=== PATIENT | male | born 1965 | race Two or more races ===

== ENCOUNTER 2024-09-28 13:21 | Inpatient (IN) | payer OTHER, SELFPAY ==
[2024-09-28] VITALS (19 sets, daily range): BP systolic 97–133; BP diastolic 58–84; BMI 23.9; BMI 26.0
--- NOTE | 2024-09-28 06:38 | ED.GENMED ---
History of Present Illness
General
Chief Complaint: Change in Mental Status
Source: patient and ambulance crew
Exam Limitations: clinical condition
Time Seen by Provider: 09/28/24 06:02
Nursing documentation reviewed up to this point in time: agreed with
History of Present Illness
History of Present Illness:
59-year-old male with a reported medical history of diabetes, GERD, delirium, 'encephalopathy,' who is apparently wheelchair-bound at baseline�unclear if he had a history of stroke in the past but clearly has left hemiparesis; he presents from
[facility] via EMS with no paperwork. EMS report was that they were called for 'unresponsive patient.' Per their report on their arrival patient was alert and speaking in a few words. The nurse when the patient arrived apparently was
able to get a hold of Nga at [facility] who reported that she is not sure why the patient has left hemiparesis or if he has a history of stroke. Apparently he was sent after an unresponsive episode while they were putting his pants on this
morning. Apparently there was an issue with the printer at [facility] and so he was sent with no paperwork and we have no other information or records. The patient is able to speak only in 1 or 2 words and is a very poor historian. I tried myself
to call [facility] twice and was not able to get in contact with anyone there. Will continue to reach out for collateral history. Unfortunately patient has never been here before and we do not have any emergency contacts to try and contact family.
6:53 AM: I was able to get into Niurka from [facility] to speak with her directly. She says that the patient has been at [facility] for about a month. His medical history includes a history of malignant brain cancer with cerebral edema; he does
have a history of left lower extremity DVT, hyperlipidemia, anxiety, diabetes. He is usually in a wheelchair but is able to ambulate somewhat at baseline. She says that he does NOT have left arm weakness at baseline. He apparently had a recent
hospice consult but is full code and has not initiated hospice care. She reports that this morning when they went to give him 6 AM meds she found him laying in the bed twitching and unresponsive. After a minute or 2 he was then sluggish and more
responsive but still not at his baseline. She noted that he had significant left arm weakness which is apparently not normal for him and EMS was called to bring him to the hospital.
Review of Systems
Review of Systems
Unable to obtain full review of systems at this time due to: other (Aphasia)
All Other Systems: Not applicable
Phy Exam
Physical Exam
Physical Exam:
General: Awake, alert, only speaks in 1-2 words and sparingly, he does try to follow simple commands
Head: Normocephalic, atraumatic
Eyes: Conjunctiva normal, EOMI, pupils equal round and reactive to light bilaterally
Throat: Airway intact, handling secretions
Neck: Trachea midline, supple without meningismus
Lungs: Clear to auscultation bilaterally, no wheezing, rales, rhonchi
Heart: Tachycardia with regular rhythm, no murmurs, gallops, or rubs
Abd: Soft, non distended, no apparent tenderness, no masses
Neuro: Patient has left hemiparesis, left facial droop, expressive aphasia
Skin: Patient has erythema of the left lower leg and some warmth in this area
Extremities: Patient has erythema and warmth of the left lower leg with asymmetric edema +1 left leg, no edema in the right lower extremity; he does have palpable equal pulses throughout all extremities
Scores
Heart Failure Risk
Heart Failure Risk Score: Not Applicable
Heart Score for Chest Pain Patients
STEMI patient?: Not applicable
Withdrawal Assessment of Alcohol
Withdrawal Assessment Completed?: Not applicable
Sepsis
Sepsis Screening
Sepsis Assessment: Sepsis Ruled Out
Sepsis Screen
Sepsis Screen: Sepsis Ruled Out
Date: 09/28/24
Time: 09:44
Course
Orders/Labs/Results
Orders:
Orders
09/28/24 06:01
EKG [Electrocardiogram (*1)] Urgent
Reason for Study: Fatigue / Weakness
09/28/24 06:02
EKG- Treatment ONCE
09/28/24 06:22
Complete Blood Count/With Diff Urgent
Ferritin Urgent
Comment: ADD ON
Folate Urgent
Comment: ADD ON
Free T4 Urgent
Comment: ADD ON
TSH Reflex To Free T4 Urgent
Vitamin B12 Urgent
Comment: ADD ON
09/28/24 06:36
US Periph Venous LOWER Ext LT Urgent
Comment:
Reason For Exam: lle redness, sweling
09/28/24 06:37
EKG- Treatment ONCE
Rectal Temp- Treatment ONCE
09/28/24 06:54
CT HEAD STROKE ALERT W/o Cont Urgent
Comment:
Reason For Exam: syncope, left arm weakness
CT HEAD/NECK ANG STROKE ALERT Urgent
Comment:
Reason For Exam: syncope, left arm weakness
09/28/24 07:02
Cardiovascular Evaluation Urgent
Comment: ADD ON
Comprehensive Metabolic Panel Urgent
09/28/24 07:35
Levetiracetam Injectable [Keppra] 3,000 mg IV NOW STA
Lorazepam [Ativan] 1 mg IV NOW STA
09/28/24 07:36
NEUROLOGY CONSULT Urgent
Consulting Provider: Beau Cunningahm
Was physician already notified: Yes
09/28/24 07:41
Urinalysis Reflex To Culture Urgent
Date Specimen was Collected: 09/28/24
Time Specimen was Collected: 07:38
Urine Microscopic Reflex Cult Urgent
09/28/24 08:26
EEG Extend Monitor >1hr Routine
Reason for Exam: seizure
MethylPREDNISolone. [Solu-Medrol] 1,000 mg 0.9% Sodium Chloride 250 ml [Nss] 250 ml IV NOW
09/28/24 08:30
Dexamethasone Sod Phosphate [Decadron] 8 mg IV NOW STA
09/28/24 09:46
Case Management Consult ONCE
Case Management Consult: Hospice
Hospice: Evaluation and treat
09/28/24 09:50
Add On- LAB Routine
Tests Added?: folate, ferritin, TSH, free t4, B12, lipid panel
09/28/24 11:06
HEMATOLOGY CONSULT Routine
Consulting Provider: Nila Diane
Was physician already notified: Yes
Reason for consult: Brain mass, PE on Eliquis . TY
09/28/24 11:22
Old Records Request [Obtain Records] As Directed
Dates of Information to be Released: last
Type of Information Requested: Last Office Visit H&P
Comment: Dr.Gupta Gonzalez [facility]
Old Records Request [Obtain Records] As Directed
Dates of Information to be Released: august 2024
Type of Information Requested: Consults
Discharge Summary
H&P
Radiology Results
Comment: [facility]
09/28/24 11:50
Admit/Transfer Patient As Directed
Co-Sign Provider:
Level of Care: Inpatient admission
Assign to:: IMU- Intermediate Care
Physician / Group: Hospitalist
Diagnosis: Seizures, Brain mass
Reason for Hospitalization: Seizures, Brain mass
Expected length of stay greater than two midnights?: Yes
ELOS- Estimated Length of Stay in days: 2
I certify the patient meets the requirements for IP care: Yes
09/28/24 11:51
PRN Pain Medication Management As Directed
May give lesser potent ordered pain med per pt: Yes
preference::
Protocol:: Medication orders for pain may be administered in a
manner that supports deferring to patient preference
when the pt is:
- Requesting an ordered lesser potent pain medication.
Least to most potent pain medications are defined
as: acetaminophen < NSAID < tramadol < opioids
(morphine, oxycodone, hydromorphone).
- Requesting a lesser dose of the same medication IF
ORDERED.
- Requesting a less intrusive route of administration
if both routes are prescribed by the provider (PO <
IV).
09/28/24 11:53
Code Status As Directed
Resuscitation Status: Full Code
Abnormal Lab Results
09/28/24 09/28/24 09/28/24
06:22 07:02 07:23
WBC 12.6 H 10^3/uL
(4.8-10.8)
RBC 4.11 L 10^6/uL
(4.70-6.10)
MCV 95.6 H fL
(80.0-94.0)
MCH 32.4 H pg
(27.0-31.0)
Abs Immat Gran (auto) 0.5 H 10^3/uL
(0-0.05)
Absolute Neuts (auto) 10.5 H 10^3/uL
(1.4-6.5)
Absolute Lymphs (auto) 0.7 L 10^3/uL
(1.2-3.4)
Absolute Monos (auto) 0.8 H 10^3/uL
(0.1-0.6)
Immature Gran % 4.0 H %
(0-0.5)
Neutrophils % 83.6 H %
(42.2-75.2)
Lymphocytes % 5.2 L %
(20.5-51.1)
Carbon Dioxide 35 H mmol/L
(22-30)
BUN 21 H mg/dl
(9-20)
Glucose 170 H mg/dl
(70-99)
Total Protein 5.8 L g/dl
(6.3-8.2)
Albumin 3.3 L g/dl
(3.5-5.0)
Urine Ketones
Urine Bacteria (Reflex)
Urine Albumin (Reflex)
POC Glucose 166 H mg/dl
(70-99)
09/28/24
07:41
WBC
RBC
MCV
MCH
Abs Immat Gran (auto)
Absolute Neuts (auto)
Absolute Lymphs (auto)
Absolute Monos (auto)
Immature Gran %
Neutrophils %
Lymphocytes %
Carbon Dioxide
BUN
Glucose
Total Protein
Albumin
Urine Ketones 1+ A
(Negative)
Urine Bacteria (Reflex) Few A
(Negative)
Urine Albumin (Reflex) 2+ A
(Neg - Trace)
POC Glucose
09/28/24 06:22
09/28/24 07:02
Vital Signs
Initial and Last Documented VS:
Initial Vital Signs
BP
133/82
09/28/24 05:54
Last Documented Vital Signs
Temp Pulse Resp BP Pulse Ox
36.9 C 73 14 107/67 100
09/28/24 07:53 09/28/24 08:00 09/28/24 08:00 09/28/24 08:00 09/28/24 08:00
MDM/Problems Addressed
Differential Diagnosis Includes:
Unresponsive episode: Syncope versus seizure�vasovagal, dysrhythmia, anemia, electrolyte derangement, seizure, stroke, etc
MDM/Problems Addressed:
59-year-old male presents with limited history/clinical context unfortunately�apparently he was sent for an unresponsive episode at the assisted this morning. He apparently has a history of left hemiparesis presumably from stroke although again
background information is very limited on initial assessment. His vital signs here were significant for mild tachycardia. Physical exam as above. Will need to continue to seek out collateral history on this patient. In the meantime we will start
workup to include CT head, EKG, labs including a CBC and CMP, thyroid studies and urinalysis. His Accu-Chek was normal. Will check left lower extremity ultrasound given erythema and asymmetric edema although this could be chronic in the setting of
hemiparesis. Monitor very closely reassess after the above.
After obtaining further history from [facility] stroke alert was immediately activated at 6:53 AM. He would not be a tenecteplase candidate given his apparent history of malignant brain tumor with cerebral edema; regardless would likely be outside
window with last normal last night. Suspect more likely that this is a seizure with Alexx's paralysis or worsening cerebral edema secondary brain mass.
I was able to get [facility] to send the records via email. Physician at [facility] also available and reports that he does have history of cerebral edema and is on dexamethasone and Keppra. He also has known history of DVT/PE and is on Eliquis.
CT head shows no hemorrhage but severe cerebral edema likely secondary to mass. No prior CT available for comparison. Initial care was apparently through [facility] according to staff at [facility]. He was incidentally noted to have PE on CTA head
and neck and DVT study of left lower extremity was positive�again this is a known diagnosis and patient is on Eliquis. I did discuss the case with neurology at length with concern that patient could have subclinical seizures causing his worsening
left arm weakness versus worsening cerebral edema. EEG ordered. Treat with Ativan and Keppra. I think he will require admission�I did reach out to both of patient's emergency contacts to update but no answer on multiple calls. Will reach out to
team at [facility] to discuss.
I spoke with Dr. Arredondo the patient's medical oncologist through [facility]. Apparently he was seen by neurosurgery through [facility] during an admission in August. Neurosurgery had signed off on the case with no plans for neurosurgical intervention.
His medications were being managed by medical oncology including prescription for Keppra and dexamethasone. He has been having intermittent aggressive behaviors. Per his oncologist he missed his most recent appointment which was last week. He is
primary cared for by his brother ([phone]). It sounds like Dr. Arredondo had recommended hospice care to the patient's brother. I called the patient's brother to discuss the case�he says that he is not yet ready to pursue hospice care but is
willing to discuss it�he will come to hospital. At this point we will admit to the hospitalist service with neurology consultation and further discussions regarding ultimate plan and possible hospice.
Chronic conditions affecting care:
Brain mass
*Radiology
Radiology exam reviewed: radiology read reviewed
*Pulse Oximetry
SaO2: 98
Oxygen Mode of Delivery: Room air
Patient hypoxic: no (98%)
*EKG
Interpreted by ED Provider?: Yes
Heart Rate: 94
Rate: normal
Rhythm: sinus (Baseline tremor)
Meridian: normal axis
Interval: normal interval
QRS Pattern: normal QRS
Ischemia: other (Possible inferior infarct age undetermined)
*Critical Care Note
Total Time (30-74mins, 75-104mins- exclusive of procedures): 39
comment:
Critical care statement: A total of 39 minutes of critical care time was provided for this patient. This includes management of unstable vital signs, evaluation of the patient at bedside, frequent reassessment, discussion with
consultants/hospitalist, and review of pertinent medical records. This time was separate from time utilized to perform any aforementioned documented procedures
Data Reviewed
Source: patient and ambulance crew
Patient Management
Discussion with other providers: Hospitalist (Discussed with hospitalist), First Assistant (Discussed with neurology) and group home staff (Discussed directly with assisted staff)
Escalation/DeEscalation of care consider admission/obs:
Admission indicated
ED Attending Note
-
Portions of this chart may have been created with voice recognition software.� Occasional wrong word or��sound alike� substitutions may have occurred due to the inherent limitations of voice recognition software.
Discharge Plan
Departure
Patient Disposition: Admit
Date of Disposition: 09/28/24
Time of Disposition: 09:44
Admit to doctor: Eh
Presentation/result/management discussed w/ accepting MD/DO: Hospitalist
Patient with high blood pressure during this ER visit?: No
Discharge Problem:
Left arm weakness, Seizure, Cerebral edema, DVT (deep venous thrombosis), Pulmonary embolism
Interventions
Interventions:
*Risk Screen - Suicide Last Done: 09/28/24 05:58
*General Assessment Last Done: 09/28/24 05:58
*Neglect/Abuse Screening Last Done: 09/28/24 05:58
*ED- Fall Risk Assessment Last Done: 09/28/24 05:58
*ED COVID-19 Vaccine History Last Done: 09/28/24 05:58
ED- Neurological Assessment Last Done: 09/28/24 08:15
ED- Cardiac Assessment Last Done: 09/28/24 08:15
ED Swallowing Screen Last Done: 09/28/24 08:15
[2024-09-28 06:45] LABS: % Basophils 0.4 % (0-2); % Eosinophils 0.1 % (0-6); % Lymphocytes 5.2 % (20.5-51.1); % Monocytes 6.7 % (1.7-9.3); % Neutrophils 83.6 % (42.2-75.2); Absolute Basophils 0.1 10^3/uL (0-0.2); Absolute Immature Granulocytes 0.5 10^3/uL (0-0.05); Absolute Lymphocytes 0.7 10^3/uL (1.2-3.4); Absolute Monocytes 0.8 10^3/uL (0.1-0.6); Absolute Neutrophils 10.5 10^3/uL (1.4-6.5); Hematocrit 39.3 % (39.0-52.0); Hemoglobin 13.3 g/dL (13.0-18.0); Mean Corp Hgb Conc. 33.8 g/dL (33.0-37.0); Mean Corpuscular Hgb 32.4 pg (27.0-31.0); Mean Corpuscular Volume 95.6 fL (80.0-94.0); Mean Platelet Volume 9.4 fL (7.4-10.4); Nucleated Red Blood Cells % 0 % (-); Platelet Count 190 10^3/uL (130-400); Red Blood Cell Count 4.11 10^6/uL (4.70-6.10); White Blood Cell Count 12.6 10^3/uL (4.8-10.8)
[2024-09-28 07:25] LABS: Glucose - Point of Care 166 mg/dl (70-99)
[2024-09-28 07:37] LABS: ALT (SGPT) 33 U/L (0-50); AST (SGOT) 17 U/L (17-59); Albumin 3.3 g/dl (3.5-5.0); Alkaline Phosphatase 80 U/L (38-126); Blood Urea Nitrogen 21 mg/dl (9-20); Calcium 9.1 mg/dl (8.4-10.2); Carbon Dioxide 35 mmol/L (22-30); Chloride 104 mmol/L (98-107); Estimated Creatinine Clearance 95 ml/min; Glucose 170 mg/dl (70-99); Potassium 3.7 mmol/L (3.5-5.1); Sodium 141 mmol/L (135-145); Total Bilirubin 0.5 mg/dl (0.2-1.3); Total Protein 5.8 g/dl (6.3-8.2); eGFR > 60.00
[2024-09-28] MEDS: KEPPRA 3000 MG IV (07:51)
[2024-09-28] MEDS: ATIVAN 1 MG IV (07:52)
[2024-09-28 08:12] LABS: Urine Albumin 2+ (Neg - Trace); Urine Bilirubin Negative (Negative); Urine Character Slightly Cloudy (Clear); Urine Color Yellow; Urine Glucose Negative (Negative); Urine Ketone 1+ (Negative); Urine Leukocyte Negative (Negative); Urine Nitrite Negative (Negative); Urine Occult Blood Negative (Negative); Urine Specific Gravity 1.025 (<1.030); Urine Urobilinogen Negative (Neg - 1+)
--- NOTE | 2024-09-28 08:15 | CON.NEURO ---
Addendum entered and electronically signed by Beau Cunningham MD 09/28/24 17:48:
Studies reviewed.
I have personally examined the patient. I reviewed and agree with the CHILDREN'S CHOIR DIRECTOR's Note.
My addenda:
Awake, alert, bradyphrenic. No acute distress.
Speech very hoarse, minimal output.
Unable to follow 2-step requests, mild to moderate difficulty with single step requests. No tremor.
Extra-ocular movements grossly intact.
Facial movements reduced on the right mildly, otherwise intact. Hearing intact to normal conversational volume.
Neck: full ROM.
Chest: no dyspnea
Heart: no JVD
Ext: (-) Clubbing, erythema in the left lower extremity distally
IMPRESSIONS/RECOMMENDATIONS:
Abrupt onset of change in mental status. Most likely secondary to combination of generalized vasogenic edema which is most likely secondary to the patient's known history of brain malignancy as well as toxic metabolic factors including discovery of
pulmonary emboli and ongoing left DVT
Patient provided with loading dose of levetiracetam and increase in routine dosing from 500 mg twice a day to dosing of 1000 mg twice a day
Check EEG, completed
Increase routine dexamethasone from 2 mg to dosing of 4 mg 4 times a day as well as loading dose of 10 mg
Continue use of apixaban
Rehabilitation evaluations and treatment
Consideration for hospice seems reasonable
Will continue to follow patient.
Original Note:
Documented by User: Teresa Bauman NP 09/28/24 10:27
Neuro Assessment/Plan
Assessment
59-year-old male presents from [facility] via EMS with limited history/clinical context unfortunately�apparently he was sent for an unresponsive episode at the shelter this morning.
Peripheral Vascular Ultrasound:Nonocclusive thrombus involving the left popliteal and posterior tibial veins.
Head CT:
1. SEVERE VASOGENIC EDEMA throughout the RIGHT PARIETAL LOBE, RIGHT OCCIPITAL LOBE, and POSTERIOR RIGHT FRONTAL LOBE with associated sulcal effacement and effacement of the body and occipital horn of the right lateral ventricle. Considering that
this is located deep to the site of a right parietal craniotomy, this may be secondary to a RECURRENT INTRAPARENCHYMAL BRAIN TUMOR (either metastatic disease or primary brain malignancy). Other causes of severe vasogenic edema are also possible.
2. Severe white matter disease in the left parietal and occipital lobes with mild mass effect which is much less pronounced than on the right.
3. 5.6 mm right to left midline shift.
4. No CT evidence for acute intracranial hemorrhage or transcortical ischemic infarct.
CTA head and neck:
NECK CTA:
1. ACUTE PULMONARY ARTERIAL EMBOLI in the RIGHT LUNG.
2. Mild atherosclerotic plaque in both carotid bifurcations.
3. Mild hypoplasia of the left vertebral artery.
4. Moderate discogenic degenerative disease at C4/C5, C5/C6, and C6/C7 with disc-osteophyte complexes causing mild spinal cord compression and central canal stenosis.
HEAD CTA:
1. 50-70% diameter stenosis in the terminal communicating segment of the right ICA.
2. 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
3. SEVERE VASOGENIC EDEMA throughout the RIGHT PARIETAL, POSTERIOR FRONTAL, and OCCIPITAL LOBES located deep to a right parietal craniotomy. Severe mass effect with sulcal effacement and effacement of the body of the right lateral ventricle
suggesting an INTRAPARENCHYMAL BRAIN TUMOR (or radiation necrosis).
4. Severe white matter disease throughout the left parietal, occipital, and posterior frontal lobes.
5. 5 mm [id number] midline shift.
Labs: Cholesterol 174, LDL 100
Plan
Impressions:
I. abrupt onset of left sided weakness and change in mental status from breakthrough seizure with Alexx's paralysis in the setting of severe cerebral edema secondary to metastatic disease
II. cannot rule out CVA in the setting of hypercoagulable state secondary to metastatic disease process
Plan:
-obtain EEG to monitor seizure activity
-seizure precautions
-load with 3g Levetiracetam and increase from 500 mg BID to 1000 mg BID
-give 8 mg dexamethasone IV now, continue 2 mg daily
-DVT prophylaxis
-neurochecks and NIHSS per unit guidelines
-if no improvement in mental status and exam by tomorrow, may consider brain MRI
-PT/OT/ST evaluations
-resume anticoagulation when able to take po
-increase statin therapy when able to take po
-may consider hospice care
Consultation
Order
Date of Consultation: 09/28/24
Requesting Provider: hospitalist
Reason for Consult: cerebral edema, seizure like activity
Subjective/Objective
Subjective Data
Date of Service: September 28, 2024
Limited history given patient with severe expressive aphasia and arrived to ED with no paperwork or family. Note taken from ED documentation by Dr. Haque:
'59-year-old male with a reported medical history of diabetes, GERD, delirium, 'encephalopathy,' who is apparently wheelchair-bound at baseline�unclear if he had a history of stroke in the past but clearly has left hemiparesis; he presents from
[facility] via EMS with no paperwork. EMS report was that they were called for 'unresponsive patient.' Per their report on their arrival patient was alert and speaking in a few words. The nurse when the patient arrived apparently was
able to get a hold of Nga at [facility] who reported that she is not sure why the patient has left hemiparesis or if he has a history of stroke. Apparently he was sent after an unresponsive episode while they were putting his pants on this
morning. Apparently there was an issue with the printer at [facility] and so he was sent with no paperwork and we have no other information or records. The patient is able to speak only in 1 or 2 words and is a very poor historian. I tried myself
to call [facility] twice and was not able to get in contact with anyone there. Will continue to reach out for collateral history. Unfortunately patient has never been here before and we do not have any emergency contacts to try and contact family.
6:53 AM: I was able to get into Niurka from [facility] to speak with her directly. She says that the patient has been at [facility] for about a month. His medical history includes a history of malignant brain cancer with cerebral edema; he does
have a history of left lower extremity DVT, hyperlipidemia, anxiety, diabetes. He is usually in a wheelchair but is able to ambulate somewhat at baseline. She says that he does NOT have left arm weakness at baseline. He apparently had a recent
hospice consult but is full code and has not initiated hospice care. She reports that this morning when they went to give him 6 AM meds she found him laying in the bed twitching and unresponsive. After a minute or 2 he was then sluggish and more
responsive but still not at his baseline. She noted that he had significant left arm weakness which is apparently not normal for him and EMS was called to bring him to the hospital.
After obtaining further history from [facility] stroke alert was immediately activated at 6:53 AM. He would not be a tenecteplase candidate given his apparent history of malignant brain tumor with cerebral edema; regardless would likely be outside
window with last normal last night. Suspect more likely that this is a seizure with Alexx's paralysis or worsening cerebral edema secondary brain mass. CT head shows no hemorrhage or transcortical ischemic infarct but severe cerebral edema likely
secondary to mass. No prior CT available for comparison. His head and neck CTA neck showed acute pulmonary arterial emboli in the right lung, mild atherosclerotic plaque in both carotid bifurcations, mild hypoplasia of the left vertebral artery, and
moderate discogenic degenerative disease at C4/C5, C5/C6, and C6/C7 with disc-osteophyte complexes causing mild spinal cord compression and central canal stenosis. His CTA head showed 50-70% diameter stenosis in the terminal communicating segment of
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 His left lower extremity with erythema and asymmetrical edema. Ultrasound showed nonocclusive thrombus involving the left popliteal and posterior tibial
veins. Vital signs stable. Neurologic examination with left hemiparesis and expressive aphasia, able to follow simple commands. Intermittent RUE twitching noted. According to [facility] records, he does have history of cerebral edema and is on
dexamethasone and Keppra. He also has known history of DVT/PE and is on Eliquis.
Apparently he was seen by neurosurgery through [facility] during an admission in August. Neurosurgery had signed off on the case with no plans for neurosurgical intervention. His medications were being managed by medical oncology including
prescription for Keppra and dexamethasone. He has been having intermittent aggressive behaviors. Per his oncologist he missed his most recent appointment which was last week. He is primary cared for by his brother ([phone]). It sounds like
Dr. Arredondo had recommended hospice care to the patient's brother. I called the patient's brother to discuss the case�he says that he is not yet ready to pursue hospice care but is willing to discuss it�he will come to hospital. At this point we
will admit to the hospitalist service with neurology consultation and further discussions regarding ultimate plan and possible hospice.'
Objective Data
Vital Signs
Temp Pulse Resp BP Pulse Ox
98.4 F 83 14 107/67 98
09/28/24 07:37 09/28/24 08:00 09/28/24 08:00 09/28/24 08:00 09/28/24 07:04
Lab Results
09/28/24 06:22
09/28/24 07:02
Sodium 141 mmol/L (135-145) 09/28/24 07:02
Potassium 3.7 mmol/L (3.5-5.1) 09/28/24 07:02
BUN 21 mg/dl (9-20) H 09/28/24 07:02
Glucose 170 mg/dl (70-99) H 09/28/24 07:02
Calcium 9.1 mg/dl (8.4-10.2) 09/28/24 07:02
Patient Allergies
No Known Allergies Allergy (Unverified 09/28/24 07:07)
CVA Assessment
Onset of Stroke Symptoms
Onset of symptoms known: No
Time pt last seen normal is known: No
NIH Stroke Score
Level of Consciousness: 1 - Arousable
LOC Questions: 0-Answers both correctly
LOC Commands: 0-Performs both correctly
Best Horizontal Gaze: 0-Normal
Visual Jaquez: 0=Normal, no visual loss
Facial Palsy: 1=Minor paralysis
Motor - Right Arm: 0=No drift 10 seconds
Motor - Left Arm: 4=No movement
Motor - Right Le-No drift 5 seconds
Motor - Left Le-No movement
Limb Ataxia: 2-Present in two limbs
Sensation: 2-Severe loss
Best Language: 2-Severe aphasia
Dysarthria: 0-Normal
Extinction and Inattention: 2-Total jeremy inattention
NIH Total Score:: 18
Tenecteplase Contraindications
Inclusion and Exclusion criteria reviewed: Yes
Reasons for NON-Tx with Thrombolytics ABSOLUTE Exclusions: Patient taking oral anticoagulant and last dose within 48 hours
IAT Contraindications: >6 hrs from onset/last seen normal
Modified Pepperell Score (MRS)
-
Modified Pepperell Scale (mRS): Severe disability. Requires constant nursing care.
Score: 5
Review of Systems
-
Unable to obtain full review of systems at this time due to: Acuity and Patient Non-verbal
Physical Exam
-
General: Older than Stated Age
HEENT: Normocephalic and Atraumatic
Neck: Full Range of Motion
Respiratory: No Dyspnea
Cardiac: No JVD
GI: Non-distended
Extremities: Edema +3 (left pretibial edema due to DVT)
Psych: Unable to Assess
Extended Neurological Exam
Mood & Affect: Unable to Assess
Attention Span & Concentration: Lethargic and Moderate Difficulty with 2 Step Request
Memory: Unable to Recall
Tremor: Frequent (RUE tremor)
Speech: Severely Reduced Output and Dysarthric
Cranial Nerve VII: Facial Symmetry: Reduced (left sided weakness)
Muscle Strength, Overall: Reduced on Left (left sided hemiparesis)
Past History
Past History
ED Past Medical History: Cancer, HTN, Hypercholesterolemia, NIDDM and Other (DVT)

Documented by User: Beau Cunningham MD 09/28/24 17:35
CVA Assessment
NIH Stroke Score
NIH Total Score:: 18
Modified Diana Score (MRS)
-
Score: 5
[2024-09-28 08:39] LABS: Urine Mucus Few; Urine Urothelial Cell 0-2 /LPF (FEW)
[2024-09-28 08:40] LABS: Urine Red Blood Cell 0-2 /HPF (0-2)
[2024-09-28 08:41] LABS: Urine Bacteria Few (Negative); Urine White Cell 0-2 /HPF (0-5)
[2024-09-28] MEDS: DECADRON 8 MG IV (09:00)
[2024-09-28 10:07] LABS: HDL Cholesterol 57 mg/dl; LDL Cholesterol, Calculated 100 mg/dl; Total Cholesterol 174 mg/dl (50-199); Triglyceride 89 mg/dl (10-149); Very Low Density Lipoprotein 17 mg/dl (0-30)
--- NOTE | 2024-09-28 10:50 | HPS.HSE ---
Family Physician
-
Family Physician: Bam Tafoya, DO
Chief Complaint
-
Unresponsive episode, twitching
History of Present Illness
59-year-old male with history of glioblastoma gets care at [facility]. He was admitted there in August and was discharged to [facility]. He has been there for a month. Patient has been seen by his oncologist Dr. Arredondo and is on Keppra and steroids
now. He is also on Eliquis for DVT/PE. He had a seizure today and also left-sided weakness. Patient has baseline weakness on the left side and left facial droop along with expressive aphasia. ER spoke to [facility] and they recommended hospice
care. Patient's family does not want hospice care. At baseline patient is able to be a few words. Brother states that he visits him every other day and brings dinner. States his brother eats dinner with him and able to communicate. For the past
2 days he was not himself.
Medical History
Past Medical History
Past Medical History: Reports Other
Additional Past Medical History:
Glioblastoma, seizures, hyperlipidemia, left lower extremity DVT, anxiety, diabetes. Wheelchair-bound, anxiety
Past Surgical History: Reports Other (unknown)
Additional Past Surgical History:
Brain surgery ( Details unclear)
Social History
Unable to obtain full social history at this time due to: Other
Tobacco: Former Smoker
Alcohol: None
Drug: None
Personal: Single
Employment: Disabled
Family History
Family History: Other (Brother says nothing.)
Allergies / Home Medications
Allergies reflects when Allergies were last updated in [facility].
Home Medications with original date entered in [facility]
Allergy/Medication List:
Allergies
Allergy/AdvReac Type Severity Reaction Status Date / Time
No Known Allergies Allergy Unverified 09/28/24 07:07
Home Medications
acetaminophen 325 mg tablet (Tylenol) 650 mg PO Q6HPRN PRN mild pain 09/28/24
alprazolam 0.5 mg tablet (Xanax) 0.5 mg PO BIDPRN PRN anxiety 09/28/24
apixaban 5 mg tablet (Eliquis) 5 mg PO BID Blood Clot Prevention/Tx 09/28/24
bisacodyl 10 mg rectal suppository (Dulcolax (bisacodyl)) 10 mg NH DAILYPRN PRN if no bm aftr mom 09/28/24
bisacodyl 5 mg tablet,delayed release (Dulcolax (bisacodyl)) 10 mg PO HS Constipation 09/28/24
calcium carbonate (Tums) 300 mg PO BID Gastrointestinal Issue 09/28/24
dexamethasone 2 mg tablet 2 mg PO DAILY 09/28/24
docusate sodium 50 mg capsule 50 mg PO HS Constipation 09/28/24
ergocalciferol (vitamin D2) 1,250 mcg (50,000 unit) capsule 1,250 mcg PO Q7D Supplement 09/28/24
furosemide 40 mg tablet (Lasix) 40 mg PO DAILY Blood Pressure 09/28/24
levetiracetam 500 mg tablet (Keppra) 500 mg PO BID Neurological Condition 09/28/24
magnesium hydroxide 400 mg/5 mL oral suspension (Milk of Magnesia) 2,400 mg PO [id number] PRN constipation 09/28/24
melatonin 3 mg tablet 3 mg PO HS Sleep 09/28/24
metformin 500 mg tablet 500 mg PO BID Diabetes 09/28/24
nicotine 21 mg/24 hr daily transdermal patch 1 patch transdermal DAILY NICOTINE REPLACEMENT 09/28/24
olanzapine 2.5 mg tablet 2.5 mg PO DAILY Mental Health/Anxiety 09/28/24
olanzapine 5 mg disintegrating tablet 5 mg PO DAILY@1300 Mental Health/Anxiety 09/28/24
omeprazole 20 mg tablet,delayed release 20 mg PO DAILY Gastrointestinal Issue 09/28/24
rosuvastatin 10 mg tablet (Crestor) 10 mg PO DAILY High Cholesterol 09/28/24
sodium phosphates 19 gram-7 gram/118 mL enema (Fleet Enema) 118 ml NH DAILYPRN PRN if no bm aftr dulcolax 09/28/24
trazodone 50 mg tablet 50 mg PO HS Sleep 09/28/24
Review of Systems
-
Unable to obtain full review of systems at this time due to: Patient Non-verbal
A 12 point ROS was completed and negative except as noted: No
Physical Exam
Vital Signs
Vital Signs
Temp Pulse Resp BP Pulse Ox
98.4 F 73 14 107/67 100
09/28/24 07:53 09/28/24 08:00 09/28/24 08:00 09/28/24 08:00 09/28/24 08:00
Physical Exam
General: Other (says a few words)
Respiratory: Clear
Cardiac: S1/S2 and Regular Rhythm
GI: Soft, Non Tender and Normal Bowel Sounds
Skin: Warm
Neuro: Other (having intermittent Seizures on the left side, says name then goes to sleep. Left hemiplegia)
Laboratory Results
-
09/28/24 06:22
09/28/24 07:02
Laboratory Results
Total Bilirubin 0.5 mg/dl (0.2-1.3) 09/28/24 07:02
AST 17 U/L (17-59) 09/28/24 07:02
ALT 33 U/L (0-50) 09/28/24 07:02
Alkaline Phosphatase 80 U/L (38-126) 09/28/24 07:02
Data Reviewed
-
CT Scan: Report Reviewed by me
Impression/Plan
-
IMPRESSION/PLAN:
CTA head and neck-acute pulmonary artery embolism in the right lung. Mild atherosclerotic plaque in both carotid bifurcations. Mild hypoplasia of the left vertebral artery. 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
complexes causing mild spinal cord compression and central canal stenosis.
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 Severe vasogenic edema throughout the right parietal, posterior frontal, occipital lobes
located deep into the right parietal craniotomy. Severe mass effect with sulci effacement and effacement of the body of the right lateral ventricle suggesting intraparenchymal brain tumor or radiation necrosis. Severe white matter disease
throughout left parietal, occipital, posterior frontal lobes. 5 mm right to left midline shift.
Head CT-severe vasogenic edema throughout the right parietal lobe, right occipital lobe and posterior right frontal lobe with associated sulcal effacement and effacement of the body and occipital horn of the right lateral ventricle. Considering that
this is located deep to the site of a right parietal craniotomy, this may be secondary to a recurrent intraparenchymal brain tumor (either metastatic disease or primary brain malignancy). Other causes of severe vasogenic edema are also possible.
Severe white matter disease in the left parietal and occipital lobes with mild mass effect which is much less pronounced than on the right.5.6 mm right to left midline shift.No CT evidence for acute intracranial hemorrhage or transcortical ischemic
infarct.
Ultrasound-nonocclusive thrombus involving left popliteal and posterior tibial veins
EKG-normal sinus rhythm
Spoke to brother . Diagnosed a year ago. He got Surgery [facility] followed by chemo and Radiation. His insurance changed and then he had to shift treatments to [facility]. He does not exactly know when last treatment was ,may be 2 months
ago. He sees him every other day at the assisted. Patient does not ambulate and the last time he ambulated was possibly 2 months ago .
# Seizures
Likely secondary to glioblastoma
Got 3 g of Keppra IV and Ativan in the ER also Decadron
Neurology evaluation
Continue Keppra but increase to 1000 mg BID, adding Vimpat
Increase Decadron to 4 mg IV Q4H per D/[facility] Neuro
# Glioblastoma
Left-sided weakness from above
Patient has been seen by neurosurgery through [facility] system during an admission in August
No neurosurgical intervention planned
Patient has been managed by medical oncology including Keppra and Decadron
Patient has been having some intermittent aggressive behavior
Reportedly patient missed appointment last week.
Medical oncologist Dr. Arredondo has also recommended hospice
# Mental health disorder/behavior management-continue Xanax 0.5 mg p.o. twice daily as needed, olanzapine 2.5 mg daily and 5 mg at 1300, trazodone 50 mg at bedtime
# PE/DVT-on Eliquis-will request hematology oncology opinion given patient was already on this and developed PE. Change to Lovenox
# Hyperlipidemia continue statin when patient can take p.o.
#Diabetes Check hemoglobin A1c
Accu-Cheks and sliding scale coverage
Restart metformin when patient can take p.o.
Watch sugars with increased steroids
# Ex Smoker
# DVT prophylaxis-Switch to Lovenox
# CODE STATUS-Full code for now. Family will get back to me
Spoke to ER attending
Discussed with patient's brother who is his next of kin and also patient's niece who is a premed student. I explained in detail his prognosis is not good. He is not currently on any treatment for glioblastoma and this is progressing. CODE STATUS
addressed they need time to think about it and will get back to me. Complications of brain edema and herniation discussed with family
Also note that hospice was discussed by his previous physician's.
Records requested from [facility] as well as from Dr. Arredondo's office
Time spent over 75 minutes
[2024-09-28 11:33] LABS: TSH Reflex To Free T4 2.45 uIU/ml (0.47-4.68)
[2024-09-28 12:03] LABS: Free T4 1.26 ng/dl (0.78-2.19)
[2024-09-28 12:53] LABS: Folate 14.3 ng/ml (2.76-20); Vitamin B12 242 pg/ml (239-931)
--- NOTE | 2024-09-28 15:02 | CM ---
CM consult, pt's brother Braulio and cousin here to see pt.
I attempted to meet with them to discuss hospice but they wanted to speak to a physician before discussing.
I TT Dr Tran, she spoke with his brother earlier and has left the hospital but will call him. I did speak with them again, his brother is willing to discuss hospice but would like him moved to a facility in [place] so he could be closer to his
sister.
I informed them pt will be going up to room 3354 shortly and CM will follow up tomorrow. Braulio says he will return tomorrow to visit.
--- NOTE | 2024-09-28 15:30 | EDRN ---
Report called to KIRSTEN Medina in IMU. Family at bedside. Case Management notified.
--- NOTE | 2024-09-28 16:25 | CON.ONC ---
Consultation
-
Date Consultation Requested: 09/28/24
Date Consultation Performed: 09/28/24
Requesting Provider: Dr Olson
Performing Provider: Nila Diane MD
Reason for Consultation: GBM
Impression
Impression
GBM, resected in october 2023, then treated with adjuvant RT and chemo
failure to thrive, new left hemiparesis
h/o LLE DVT
Plan
Plan
Patient is not a candidate for any cancer directed therapy
Rec. hospice. Brother's expressed understanding.
Will consult case mgmt/hospice
Steroids/keppra per neurology
Could stop Eliquis if going on hospice
Patient History
History of Present Illness
This is a 59 yo M w/ h/o GBM diagnosed in October 2023, s/p surgery in [place], followed by RT and chemo. His oncologist is Dr. Arredondo in [facility], who recently recommended hospice. Patient has been in rehab at [facility] (more convenient for family who
live in [place]), sent to ER w/ left hemiparesis, and ?seizure activity. CT head showed significant edema, mailgnancy. Patient is unable to give history, two brothers at bedside. He also has a h/o LLE DVT, on Eliquis for the past ~3 months.
Past-Medical/Surgical History
as per the HPI
Patient Medication
�Medication �Instructions �Recorded �Confirmed �Last Taken �Type
acetaminophen 325 mg tablet 650 mg PO Q6HPRN PRN mild pain 09/28/24 09/28/24 Unknown History
(Tylenol)
alprazolam 0.5 mg tablet (Xanax) 0.5 mg PO BIDPRN PRN anxiety 09/28/24 09/28/24 Unknown History
apixaban 5 mg tablet (Eliquis) 5 mg PO BID Blood Clot 09/28/24 09/28/24 Unknown History
Prevention/Tx
bisacodyl 10 mg rectal suppository 10 mg WI DAILYPRN PRN if no bm 09/28/24 09/28/24 Unknown History
(Dulcolax (bisacodyl)) aftr mom
bisacodyl 5 mg tablet,delayed 10 mg PO HS Constipation 09/28/24 09/28/24 Unknown History
release (Dulcolax (bisacodyl))
calcium carbonate (Tums) 300 mg PO BID Gastrointestinal 09/28/24 09/28/24 Unknown History
Issue
dexamethasone 2 mg tablet 2 mg PO DAILY 09/28/24 09/28/24 Unknown History
docusate sodium 50 mg capsule 50 mg PO HS Constipation 09/28/24 09/28/24 Unknown History
ergocalciferol (vitamin D2) 1,250 1,250 mcg PO Q7D Supplement 09/28/24 09/28/24 Unknown History
mcg (50,000 unit) capsule
furosemide 40 mg tablet (Lasix) 40 mg PO DAILY Blood Pressure 09/28/24 09/28/24 Unknown History
levetiracetam 500 mg tablet 500 mg PO BID Neurological 09/28/24 09/28/24 Unknown History
(Keppra) Condition
magnesium hydroxide 400 mg/5 mL 2,400 mg PO [id number] PRN 09/28/24 09/28/24 Unknown History
oral suspension (Milk of Magnesia) constipation
melatonin 3 mg tablet 3 mg PO HS Sleep 09/28/24 09/28/24 Unknown History
metformin 500 mg tablet 500 mg PO BID Diabetes 09/28/24 09/28/24 Unknown History
nicotine 21 mg/24 hr daily 1 patch transdermal DAILY NICOTINE 09/28/24 09/28/24 Unknown History
transdermal patch REPLACEMENT
olanzapine 2.5 mg tablet 2.5 mg PO DAILY Mental 09/28/24 09/28/24 Unknown History
Health/Anxiety
olanzapine 5 mg disintegrating 5 mg PO DAILY@1300 Mental 09/28/24 09/28/24 Unknown History
tablet Health/Anxiety
omeprazole 20 mg tablet,delayed 20 mg PO DAILY Gastrointestinal 09/28/24 09/28/24 Unknown History
release Issue
rosuvastatin 10 mg tablet (Crestor) 10 mg PO DAILY High Cholesterol 09/28/24 09/28/24 Unknown History
sodium phosphates 19 gram-7 118 ml WI DAILYPRN PRN if no bm 09/28/24 09/28/24 Unknown History
gram/118 mL enema (Fleet Enema) aftr dulcolax
trazodone 50 mg tablet 50 mg PO HS Sleep 09/28/24 09/28/24 Unknown History
Review of Systems
-
Unable to obtain full review of systems at this time due to: Patient Non Verbal
Physical Exam
-
General: No Apparent Distress and Comfortable; Negative Conversant
Neurology: Other (left hemiparesis/neglect)
Skin: Warm and Dry
Psych: Calm
Labs
Lab Results
WBC 12.6 10^3/uL (4.8-10.8) H 09/28/24 06:22
RBC 4.11 10^6/uL (4.70-6.10) L 09/28/24 06:22
Hgb 13.3 g/dL (13.0-18.0) 09/28/24 06:22
Hct 39.3 % (39.0-52.0) 09/28/24 06:22
MCV 95.6 fL (80.0-94.0) H 09/28/24 06:22
MCH 32.4 pg (27.0-31.0) H 09/28/24 06:22
MCHC 33.8 g/dL (33.0-37.0) 09/28/24 06:22
RDW 14.0 % (11.5-14.5) 09/28/24 06:22
Plt Count 190 10^3/uL (130-400) 09/28/24 06:22
MPV 9.4 fL (7.4-10.4) 09/28/24 06:22
Abs Immat Gran (auto) 0.5 10^3/uL (0-0.05) H 09/28/24 06:22
Absolute Neuts (auto) 10.5 10^3/uL (1.4-6.5) H 09/28/24 06:22
Absolute Lymphs (auto) 0.7 10^3/uL (1.2-3.4) L 09/28/24 06:22
Absolute Monos (auto) 0.8 10^3/uL (0.1-0.6) H 09/28/24 06:22
Absolute Eos (auto) 0.0 10^3/uL (0-0.7) 09/28/24 06:22
Absolute Basos (auto) 0.1 10^3/uL (0-0.2) 09/28/24 06:22
Immature Gran % 4.0 % (0-0.5) H 09/28/24 06:22
Neutrophils % 83.6 % (42.2-75.2) H 09/28/24 06:22
Lymphocytes % 5.2 % (20.5-51.1) L 09/28/24 06:22
Monocytes % 6.7 % (1.7-9.3) 09/28/24 06:22
Eosinophils % 0.1 % (0-6) 09/28/24 06:22
Basophils % 0.4 % (0-2) 09/28/24 06:22
Creatinine 0.7 mg/dL (0.7-1.3) 09/28/24 07:02
Vital Signs
Vital Signs
Temp Pulse Resp BP Pulse Ox
98.4 F 70 15 100/58 97
09/28/24 07:53 09/28/24 15:30 09/28/24 14:30 09/28/24 15:00 09/28/24 15:30
--- NOTE | 2024-09-28 16:40 | EDRN ---
Patient taken to room 3354 on monitor on stretcher by ED RNs.
--- NOTE | 2024-09-28 17:19 | EEG.RPT ---
Electroencephalogram Report
Recording
Date of EE09/28/24
Type of EEG: Routine
Length of EEG recordin minutes
Done with Video Recording: Yes
Patient Status: Inpatient
Recording Conditions: Awake and Drowsy
Hyperventilation Performed: No
Photic Stimulation Performed: Yes
Report
GREATER THAN 1 HOUR EEG REPORT
EEG INTERPRETATION:
Moderately to severely abnormal EEG for age in wakefulness and drowsiness due to mild interhemispheric asymmetry and intermittent change in the record involving the right central temporal region suggestive of subclinical seizures of theta frequency.
CLINICAL CORRELATION:
This study was suggestive of right hemispheric onset subclinical seizures which were subtle.
Clinical correlation with neuroimaging is advised.
METHODS:
A 21 channel digitized electroencephalogram (EEG) was performed in the clinical neurophysiology laboratory. The 10/20 international system of electrode placement was used with ECG and lateral/vertical eye movements recorded. Video was recorded.
[employer] quantitative EEG analysis software was utilized.
QUALITY OF STUDY:
Fair�good
ELECTROENCEPHALOGRAPHER IMPRESSION(S):
Background
Unremarkable anterior-posterior voltage gradient bilaterally with greater differentiation of anterior to posterior from the left hemisphere than the right.
Medium amplitude maximal alpha frequency posterior background from the left hemisphere; asymmetric with theta frequency maximal background from the right hemisphere, typically delta
Sleep
Drowsiness present
Photic Stimulation
Failed to activate the record
ECG
Unremarkable
[2024-09-28] MEDS: DECADRON 4 MG IV ×2 (17:38→21:37)
[2024-09-28] MEDS: NSS 1000 IV (17:39)
--- NOTE | 2024-09-28 18:10 | PTCARENOTE ---
Pt received from ED via stretcher. Aox2-3. NIH of 11- see intervention. Pt is a very poor historian and admission questions completed to the best of pt's ability. Assessment as documented. Limb alert bands placed on L arm and Leg. Bed alarm in place
for safety..
[2024-09-28 18:25] LABS: Glucose - Point of Care 140 mg/dl (70-99)
[2024-09-28] MEDS: LOVENOX 60 MG SC (21:36)
[2024-09-28] MEDS: KEPPRA 1000 MG IV (21:36)
[2024-09-29] VITALS (12 sets, daily range): BP systolic 96–134; BP diastolic 61–87
[2024-09-29 00:04] LABS: Glucose - Point of Care 144 mg/dl (70-99)
[2024-09-29] MEDS: DECADRON 4 MG IV ×6 (00:05→20:53)
[2024-09-29] MEDS: NSS 1000 IV ×2 (05:00→19:18)
[2024-09-29 05:29] LABS: Glucose - Point of Care 136 mg/dl (70-99)
[2024-09-29 05:42] LABS: Hematocrit 33.5 % (39.0-52.0); Hemoglobin 11.3 g/dL (13.0-18.0); Mean Corp Hgb Conc. 33.7 g/dL (33.0-37.0); Mean Corpuscular Hgb 32.7 pg (27.0-31.0); Mean Corpuscular Volume 96.8 fL (80.0-94.0); Mean Platelet Volume 9.9 fL (7.4-10.4); Platelet Count 171 10^3/uL (130-400); Red Blood Cell Count 3.46 10^6/uL (4.70-6.10); Red Cell Dist. Width 14.1 % (11.5-14.5); White Blood Cell Count 9.7 10^3/uL (4.8-10.8)
[2024-09-29 05:55] LABS: Blood Urea Nitrogen 23 mg/dl (9-20); Calcium 8.6 mg/dl (8.4-10.2); Carbon Dioxide 28 mmol/L (22-30); Chloride 109 mmol/L (98-107); Estimated Creatinine Clearance 98 ml/min; Glucose 152 mg/dl (70-99); Magnesium 2.2 mg/dl (1.6-2.3); Potassium 4.3 mmol/L (3.5-5.1); Sodium 141 mmol/L (135-145); eGFR > 60.00
--- NOTE | 2024-09-29 07:02 | PTCARENOTE ---
NIH 18 overnight. aaox2, forgetful, confused. L side flaccid, pt is inattentive and unaware of L side. L arm muscle twitches. No sensation in L arm. LUE & LLE cold but great pulses, +1-2 edema, elevated on pillows. IVF running, remains NPO, ST to
evaluate. pupils 4mm reactive & equal. NSR on monitor, RA. NO seizure activity noted. WIll monitor.
[2024-09-29 07:40] LABS: Glucose - Point of Care 152 mg/dl (70-99)
[2024-09-29 08:30] LABS: Glycohemoglobin (HgbA1c) 8.1 % (4.0-5.6)
[2024-09-29] MEDS: CRESTOR PO (08:35)
[2024-09-29] MEDS: NICODERM TRANSDERMAL 21 MG TRANSDERM (09:46)
[2024-09-29] MEDS: LOVENOX 60 MG SC ×2 (09:47→20:54)
[2024-09-29] MEDS: KEPPRA 1000 MG IV ×2 (09:47→20:53)
[2024-09-29] MEDS: NSS (PRESERVATIVE FREE) 10 ML IV (09:48)
[2024-09-29] MEDS: PROTONIX IV 40 MG IV (09:48)
--- NOTE | 2024-09-29 09:48 | W.PN.HOSP.TC ---
Today's Communication/Plan
-
Brother, sister and niece coming in today for further discussions
Clears ordered okay for milk and sugar
Assessment / Plan
Assessment / Plan
IMPRESSION/PLAN:
CTA head and neck-acute pulmonary artery embolism in the right lung. Mild atherosclerotic plaque in both carotid bifurcations. Mild hypoplasia of the left vertebral artery. 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
complexes causing mild spinal cord compression and central canal stenosis.
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 Severe vasogenic edema throughout the right parietal, posterior frontal, occipital lobes
located deep into the right parietal craniotomy. Severe mass effect with sulci effacement and effacement of the body of the right lateral ventricle suggesting intraparenchymal brain tumor or radiation necrosis. Severe white matter disease
throughout left parietal, occipital, posterior frontal lobes. 5 mm right to left midline shift.
Head CT-severe vasogenic edema throughout the right parietal lobe, right occipital lobe and posterior right frontal lobe with associated sulcal effacement and effacement of the body and occipital horn of the right lateral ventricle. Considering that
this is located deep to the site of a right parietal craniotomy, this may be secondary to a recurrent intraparenchymal brain tumor (either metastatic disease or primary brain malignancy). Other causes of severe vasogenic edema are also possible.
Severe white matter disease in the left parietal and occipital lobes with mild mass effect which is much less pronounced than on the right.5.6 mm right to left midline shift.No CT evidence for acute intracranial hemorrhage or transcortical ischemic
infarct.
Ultrasound-nonocclusive thrombus involving left popliteal and posterior tibial veins
EKG-normal sinus rhythm
Spoke to brother . Diagnosed a year ago. He got Surgery [facility] followed by chemo and Radiation. His insurance changed and then he had to shift treatments to [facility]. He does not exactly know when last treatment was ,may be 2 months
ago. He sees him every other day at the shelter. Patient does not ambulate and the last time he ambulated was possibly 2 months ago .
Patient is awake asking for coffee with milk and sugar
Cardiovascular system S1-S2 appreciated
Chest clear to auscultation
Left-sided hemiplegia
Abdomen soft and nontender
# Seizures
Likely secondary to glioblastoma
Got 3 g of Keppra IV and Ativan in the ER also Decadron
Neurology evaluation appreciated
Continue Keppra but increased to 1000 mg BID.
Increased Decadron to 4 mg IV Q4H per D/W Neuro
# Glioblastoma
Left-sided weakness from above
Patient has been seen by neurosurgery through [facility] system during an admission in August
No neurosurgical intervention planned
Patient has been managed by medical oncology including Keppra and Decadron
Patient has been having some intermittent aggressive behavior
Reportedly patient missed appointment last week.
Medical oncologist Dr. Arredondo has also recommended hospice
# Mental health disorder/behavior management-continue Xanax 0.5 mg p.o. twice daily as needed, olanzapine 2.5 mg daily and 5 mg at 1300, trazodone 50 mg at bedtime-hold trazodone and restart the rest
# PE/DVT-on Eliquis-will request hematology oncology opinion given patient was already on this and developed PE. Changed to Lovenox. Stop if patient is going on hospice
# Hyperlipidemia - statin
#Diabetes Check hemoglobin A1c 8.3
Accu-Cheks and sliding scale coverage
Restart metformin when patient can take p.o. solids. Hold off for now
Watch sugars with increased steroids
# Ex Smoker
# DVT prophylaxis-Switched to Lovenox
# CODE STATUS-discussed with the patient's brother. Changed patient to DNR
Spoke to patient's brother he is going to be here with his sister and also niece this afternoon. I brought up hospice over the phone but I think he is difficulty understanding therefore will need to coordinate when they visit the patient. He was
clear that he does not want CPR or intubation. He understands that if patient passes then we will not do any resuscitation efforts-that is what DNR means..
Discussed with nursing
Time spent over 50 min
Anticipated Discharge: 24 - 48 hours
Subjective/Interval History
-
Date of Service: September 29, 2024
Objective Data
-
Labs:
Laboratory Results
09/29/24
05:07
WBC 9.7
Hgb 11.3 L
Hct 33.5 L
Plt Count 171
Sodium 141
Potassium 4.3
Chloride 109 H
Carbon Dioxide 28
BUN 23 H
Creatinine 0.5 L
Glucose 152 H
Calcium 8.6
Vital Signs:
Vital Signs
Temp Pulse Resp BP Pulse Ox
97.8 F 60 14 117/69 98
09/29/24 07:54 09/29/24 08:00 09/29/24 08:00 09/29/24 08:00 09/29/24 08:00
I&O
09/28/24 09/29/24 09/30/24
06:59 06:59 06:59
Output Total 550 / 550
Balance -550 / -550
--- NOTE | 2024-09-29 10:07 | PTCARENOTE ---
Pt's code status changed to DNR. Purple bracelet applied.
--- NOTE | 2024-09-29 10:21 | CM ---
Addendum entered by Shirin Castanon RN 09/29/24 17:25:
[facility] with [facility]; [facility].
Spoke with [facility], [place] (ph [phone]); they can only accept patient for private pay, as [place] be covered under [place] in [place].
Spoke with patient's niece Neftali from [facility] ([phone]); provided update that as he [place] a [place] in [place], the [place] coverage is not transferrable to [place], so he would have to be placed in [place] in order to access his [place] - she agrees to SNF
referrals in local [place] area.
Spoke with [facility]; she will review the referrrals tomorrow and let CM know if they can accept, after she checks his insurance.
Plan follow up SNF referrals.
Plan SNF with hospice.
Addendum entered by Shirin Castanon RN 09/29/24 13:56:
Spoke with [facility]; family interested in SNF in [place] with hospice, and hoping it would be covered under Medicaid.
Met with patient's brother Braulio, his sister from [place] and niece Neftali from [facility] ([phone]);
discussed SNFs in [place] near [facility] where Braulio lives and provided Medicare.gov chcf compare list with ratings.
Family prefers [facility], [facility], [facility], [facility], [facility] , [facility].
Family understands that if accepting facility not found with the new referrals, within the next 2 days, that patient may need to return to [facility] SNF, and they agreed.
Explained private pay cost for SNF bed, when with hospice, unless facility agrees to accept under Medicaid. Family says patient had not applied for Medicaid in the past, he had only applied for Social Security, and the application for that is still
in process.
31 SNF referrals placed.
Plan follow up SNF referrals.
Plan SNF with hospice.
Original Note:
Gujarati/Italian speaking patient from [facility] with Hx Glioblastoma, Mental health disorder/behavior management with Dx Seizures Likely secondary to glioblastoma, Left-sided weakness. Room air. Receiving IV Decadron, IV Keppra, IVF. Clear
Liquids. Per nurse; confused, Assist of 2/bedrest.
CM Consult: Hospice
Spoke with patient's brother Braulio;
hospice philosophy/benefits briefly explained, and brother wishes to talk further in person to hospice nurse.
He plans on coming in today around 12:30 - 1pm.
Referral to [facility].
Spoke with [facility];
the patient was there for short term rehab, on an Medicaid bed hold, as he was transitioning to LTC.
The patient was confused, hallucinating, restless. No prior MH diagnosis known.
He has very limited mobility; able to sit in w/c in dining room and gets assist with feeding.
He requires partial lift assistance with sling/kwasi lift.
He requires assist with ADLs, and ambulates with assistance a few feet only.
He has tried to walk on his own and falls.
He has slid out of bed onto the floor.
He is receiving PT/OT.
[facility].
The ph for report [phone] [place] [address] nurses station, fax [phone].
Plan follow up after seen by Hospice.
--- NOTE | 2024-09-29 11:05 | PTOTSP ---
Speech Therapy Assessment
Patient lethargic with brief episodes of alertness. He accepted and tolerated thin liquid by single straw sips with only one instance of coughing due to large volume bolus. Patient refused trials of semi-solids and solids. Given current lethargy
placing patient at elevated risk of aspiration, will not recommend more than liquids at this time. Will reassess when more alert and accepting of various consistencies.
Recommend:
1. Liquids only. Okay to use straw by single sips.
2. Meds crushed in applesauce
3. Aspiration precautions.
4. Diet per md discretion if family elects hospice.
ST will reassess once patient is more alert and accepting of advanced texture trials.
[2024-09-29] MEDS: ZYPREXA ZYDIS (ORALLY DISINTEGRATING) 5 MG PO (13:03)
[2024-09-29] MEDS: NOVOLOG FLEXPEN-LOW RESISTANCE 1 UNITS SC (13:04)
[2024-09-29 13:07] LABS: Glucose - Point of Care 177 mg/dl (70-99)
--- NOTE | 2024-09-29 13:19 | W.PN.UPDATE ---
Update Note
Progress Note Update
Met with patient's brother, sister and niece at bedside. Discussed about hospice.
Patient is more awake and alert
Family is interested in talking to hospice
--- NOTE | 2024-09-29 13:27 | PTCARENOTE ---
Pt's assessment as documented. Aox2. NIH of 18 today. VSS. Family at bedside. Dr Olson at bedside to meet with pt and family and discuss hospice. Bed alarm in place for safety.
--- NOTE | 2024-09-29 13:44 | HOSPNOTE ---
Spoke with family about hospice and the philosophy. At this time they really do not want the patient to go back to [facility] and would like to look at facilities in [place] or other facilities. They understand that room and board is not covered
and are looking to make sure the patient does not have another insurance carrier. The family is also discussing the possibility of home hospice in [place] where the brother resides. We will continue to follow.
[2024-09-29] MEDS: NOVOLOG FLEXPEN-LOW RESISTANCE 4 UNITS SC (17:27)
[2024-09-29 17:37] LABS: Glucose - Point of Care 318 mg/dl (70-99)
[2024-09-29] MEDS: DULCOLAX 10 MG PO (20:53)
--- NOTE | 2024-09-29 21:27 | PTCARENOTE ---
NIH 18. aaox2, confused and forgetful. L facial droop, L side flaccid, decreased sensation to L side, complete inattention to L side, no visual mcdowell to L side. Some assessments are hard to determine d/t pt guessing. NSR, remains RA. Q2T. L arm & L
leg/foot +1-2 edema & cold but great pulses, both elevated on pillows. No urine output since being admitted, st cath X2 so far. Bladder scan now was 250cc. Pt asking repeatedly to go outside to smoke, offered nicotine patch but refused. Ivf running.
No other changes at this time. pt tele, being transferred to . awaiting to give report.
[2024-09-29 21:32] LABS: Glucose - Point of Care 187 mg/dl (70-99)
--- NOTE | 2024-09-29 22:15 | PTCARENOTE ---
Report given. Pt transferred to 3rd floor.
[2024-09-30] MEDS: DECADRON 4 MG IV ×5 (01:04→17:09)
[2024-09-30 03:10] VITALS: BP 157/70
--- NOTE | 2024-09-30 07:08 | PTCARENOTE ---
Patient arrived on unit @2210 form IMU, pulled over to bed with assist x3. Patient confused, able to follow simple commands, denies any pain or discomfort. Patient oriented to unit, call paul in reach.
[2024-09-30 07:30] VITALS: BP 141/81
[2024-09-30 07:56] LABS: Glucose - Point of Care 172 mg/dl (70-99)
[2024-09-30] MEDS: PROTONIX IV 40 MG IV (08:48)
[2024-09-30] MEDS: NICODERM TRANSDERMAL 21 MG TRANSDERM (08:49)
[2024-09-30] MEDS: KEPPRA 1000 MG IV (08:49)
[2024-09-30] MEDS: NSS (PRESERVATIVE FREE) 10 ML IV (08:49)
[2024-09-30] MEDS: ZYPREXA 2.5 MG PO (08:50)
[2024-09-30] MEDS: CRESTOR 10 MG PO (08:50)
[2024-09-30] MEDS: LOVENOX 60 MG SC (08:50)
[2024-09-30] MEDS: NOVOLOG FLEXPEN-LOW RESISTANCE 1 UNITS SC (09:33)
--- NOTE | 2024-09-30 10:50 | W.PN.HOSP.TC ---
Today's Communication/Plan
-
Patient is medically stable for discharge
Assessment / Plan
Assessment / Plan
IMPRESSION/PLAN:
CTA head and neck-acute pulmonary artery embolism in the right lung. Mild atherosclerotic plaque in both carotid bifurcations. Mild hypoplasia of the left vertebral artery. 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
complexes causing mild spinal cord compression and central canal stenosis.
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 Severe vasogenic edema throughout the right parietal, posterior frontal, occipital lobes
located deep into the right parietal craniotomy. Severe mass effect with sulci effacement and effacement of the body of the right lateral ventricle suggesting intraparenchymal brain tumor or radiation necrosis. Severe white matter disease
throughout left parietal, occipital, posterior frontal lobes. 5 mm right to left midline shift.
Head CT-severe vasogenic edema throughout the right parietal lobe, right occipital lobe and posterior right frontal lobe with associated sulcal effacement and effacement of the body and occipital horn of the right lateral ventricle. Considering that
this is located deep to the site of a right parietal craniotomy, this may be secondary to a recurrent intraparenchymal brain tumor (either metastatic disease or primary brain malignancy). Other causes of severe vasogenic edema are also possible.
Severe white matter disease in the left parietal and occipital lobes with mild mass effect which is much less pronounced than on the right.5.6 mm right to left midline shift.No CT evidence for acute intracranial hemorrhage or transcortical ischemic
infarct.
Ultrasound-nonocclusive thrombus involving left popliteal and posterior tibial veins
EKG-normal sinus rhythm
Spoke to brother . Diagnosed a year ago. He got Surgery [facility] followed by chemo and Radiation. His insurance changed and then he had to shift treatments to [facility]. He does not exactly know when last treatment was ,may be 2 months
ago. He sees him every other day at the [facility]. Patient does not ambulate and the last time he ambulated was possibly 2 months ago .
Patient is awake alert
Wants to go out to [employer] for shopping. States that he has debit card he also wants to go out and smoke.
Cardiovascular system S1-S2 appreciated
Chest clear to auscultation
Left-sided hemiplegia
Abdomen soft and nontender
# Seizures
Likely secondary to glioblastoma
Got 3 g of Keppra IV and Ativan in the ER also Decadron
Neurology evaluation appreciated
Continue Keppra but increased to 1000 mg BID.
Increased Decadron to 4 mg IV Q4H per D/W Neuro
Discussed with Dr. Cunningham decrease Decadron to 4 mg p.o. every 6 hours at discharge.
# Glioblastoma
Left-sided weakness from above
Patient has been seen by neurosurgery through [facility] system during an admission in August.No neurosurgical intervention planned
Patient has been managed by medical oncology including Keppra and Decadron
Patient has been having some intermittent aggressive behavior as outpatient and was started on Zyprexa
Medical oncologist Dr. Arredondo has also recommended hospice
Patient was seen by oncology here-hospice recommended
# Mental health disorder/behavior management-continue Xanax 0.5 mg p.o. twice daily as needed, olanzapine 2.5 mg daily and 5 mg at 1300, trazodone 50 mg at bedtime
# PE/DVT-on Eliquis-continue that. No further recommendations from hematology oncology, stop if patient is going on hospice.
# Hyperlipidemia - statin
#Diabetes hemoglobin A1c 8.3
Accu-Cheks and sliding scale coverage
Increase metformin since steroid dose is going to be increased
Watch sugars with increased steroids
# Ex Smoker
# DVT prophylaxis-Switched to Lovenox
# CODE STATUS-discussed with the patient's brother. Changed patient to DNR
Discussed with case management
Discussed with nursing
Multiple discussions with patient's brother, sister, nieces regarding his prognosis. But cerebral edema and midline shift means and what this could lead to. They all agreed to DNR yesterday. Hospice was consulted yesterday. Family made no
decision per discussion with hospice
Anticipated Discharge: Today
Subjective/Interval History
-
Date of Service: September 30, 2024
Objective Data
-
Vital Signs:
Vital Signs
Temp Pulse Resp BP Pulse Ox
97.5 F 48 16 141/81 100
09/30/24 07:30 09/30/24 07:30 09/30/24 07:30 09/30/24 07:30 09/30/24 09:56
I&O
09/29/24 09/30/24 10/01/24
06:59 06:59 06:59
Output Total 550 / 550 950 / 950
Balance -550 / -550 -950 / -950
[2024-09-30 11:45] VITALS: BP 121/72
[2024-09-30] MEDS: GLUCOPHAGE 850 MG PO (12:20)
[2024-09-30] MEDS: LASIX 40 MG PO (12:20)
[2024-09-30] MEDS: ZYPREXA ZYDIS (ORALLY DISINTEGRATING) 5 MG PO (12:20)
[2024-09-30 12:33] LABS: Glucose - Point of Care 369 mg/dl (70-99)
[2024-09-30] MEDS: NOVOLOG FLEXPEN-LOW RESISTANCE 5 UNITS SC (12:33)
[2024-09-30 15:44] LABS: Glucose - Point of Care 170 mg/dl (70-99)
[2024-09-30 15:45] VITALS: BP 121/68
[2024-09-30] MEDS: NOVOLOG FLEXPEN-LOW RESISTANCE SC (15:59)
--- NOTE | 2024-09-30 16:59 | CM ---
Patient seen at bedside
tt from [facility] - family has not made decision regarding hospice
Multiple referrals sent in careport.
PLAN: SNF once bed secured
[2024-09-30] MEDS: GLUCOPHAGE 1000 MG PO (17:08)
[2024-09-30 17:26] LABS: Glucose - Point of Care 208 mg/dl (70-99)
[2024-09-30 20:53] LABS: Glucose - Point of Care 209 mg/dl (70-99)
[2024-09-30] MEDS: KEPPRA IV ×2 (21:20→21:36)
[2024-09-30] MEDS: DULCOLAX 10 MG PO (21:20)
[2024-09-30] MEDS: DESYREL 50 MG PO (21:20)
[2024-09-30] MEDS: ELIQUIS 5 MG PO (21:20)
--- NOTE | 2024-09-30 21:36 | PTCARENOTE ---
Pt agreed to take all PO HS meds but refusing IV meds. Pt educated that IV keppra was to prevent seizures but pt refusing at this time. Plan of care on going.
[2024-09-30 23:38] VITALS: BP 129/80
[2024-10-01] MEDS: DECADRON IV ×4 (01:07→18:05)
--- NOTE | 2024-10-01 09:21 | W.PN.HOSP.TC ---
Addendum entered and electronically signed by Alex Castellano MD 10/01/24 15:53:
brief bursts of NSVT - Lopressor BID started
Original Note:
Today's Communication/Plan
-
stable for dc to a SNF with hospice
Assessment / Plan
Assessment / Plan
IMPRESSION/PLAN:
CTA head and neck-acute pulmonary artery embolism in the right lung. Mild atherosclerotic plaque in both carotid bifurcations. Mild hypoplasia of the left vertebral artery. 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
complexes causing mild spinal cord compression and central canal stenosis.
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 Severe vasogenic edema throughout the right parietal, posterior frontal, occipital lobes
located deep into the right parietal craniotomy. Severe mass effect with sulci effacement and effacement of the body of the right lateral ventricle suggesting intraparenchymal brain tumor or radiation necrosis. Severe white matter disease
throughout left parietal, occipital, posterior frontal lobes. 5 mm right to left midline shift.
Head CT-severe vasogenic edema throughout the right parietal lobe, right occipital lobe and posterior right frontal lobe with associated sulcal effacement and effacement of the body and occipital horn of the right lateral ventricle. Considering that
this is located deep to the site of a right parietal craniotomy, this may be secondary to a recurrent intraparenchymal brain tumor (either metastatic disease or primary brain malignancy). Other causes of severe vasogenic edema are also possible.
Severe white matter disease in the left parietal and occipital lobes with mild mass effect which is much less pronounced than on the right.5.6 mm right to left midline shift.No CT evidence for acute intracranial hemorrhage or transcortical ischemic
infarct.
Ultrasound-nonocclusive thrombus involving left popliteal and posterior tibial veins
EKG-normal sinus rhythm
Spoke to brother . Diagnosed a year ago. He got Surgery [facility] followed by chemo and Radiation. His insurance changed and then he had to shift treatments to [facility] system. He does not exactly know when last treatment was ,may be 2 months
ago. He sees him every other day at the long-term. Patient does not ambulate and the last time he ambulated was possibly 2 months ago .
Assessment:
Seizures
- Likely secondary to glioblastoma
- Got 3 g of Keppra IV and Ativan in the ER also Decadron
- Neurology evaluation appreciated
- Continue Keppra but increased to 1000 mg BID.
- Increased Decadron to 4 mg IV Q4H per D/W Neuro
- Dr. Olson discussed with Dr. Cunningham decrease Decadron to 4 mg p.o. every 6 hours at discharge.
Glioblastoma
- Left-sided weakness from above
- Patient has been seen by neurosurgery through [facility] during an admission in August.No neurosurgical intervention planned
- Patient has been managed by medical oncology including Keppra and Decadron
- Patient has been having some intermittent aggressive behavior as outpatient and was started on Zyprexa
- Medical oncologist Dr. Arredondo has also recommended hospice
- Patient was seen by oncology - hospice recommended
- family in agreement
Mental health disorder/behavior management-continue Xanax 0.5 mg p.o. twice daily as needed, olanzapine 2.5 mg daily and 5 mg at 1300, trazodone 50 mg at bedtime
PE/DVT
- US: nonocclusive thrombus involving left popliteal and posterior tibial veins
- continue Eliquis; can dc if patient going on hospice
Hyperlipidemia
- statin
Diabetes
- hemoglobin A1c 8.3
- Accu-Cheks and sliding scale coverage
- Increase metformin since steroid dose is going to be increased
- Watch sugars with increased steroids
Ex Smoker
DVT ppx: Eliquis
Code: DNR/DNI
Dispo: family agrees to hospice. awaiting CM/Hospice dispo (bed at facility)
Anticipated Discharge: 24 - 48 hours
Subjective/Interval History
-
Date of Service: October 01, 2024
refusing meds this AM
family has agreed to hospice
Objective Data
-
Labs:
Laboratory Results
09/30/24
19:44
Potassium Cancelled
Vital Signs:
Vital Signs
Temp Pulse Resp BP Pulse Ox
97.8 F 65 18 129/80 100
09/30/24 23:38 09/30/24 23:38 09/30/24 23:38 09/30/24 23:38 09/30/24 23:38
I&O
09/30/24 10/01/24 10/02/24
06:59 06:59 06:59
Intake Total 840 / 840
Output Total 950 / 950
Balance -950 / -950 840 / 840
Physical Exam
-
General: No Apparent Distress
HEENT: Normocephalic
Respiratory: Negative Wheezes
Cardiac: Regular Rhythm and S1/S2
GI: Soft and Nontender
Neuro: AO x 3 and Other (left sided hemiplegia)
Psych: Calm
Data Reviewed
-
Total Time Spent with Patient (in minutes): 42
Labs: Labs Reviewed by me
--- NOTE | 2024-10-01 09:43 | PTCARENOTE ---
Patient is refusing care from both RN and PCT- he is refusing vital signs, medications, and poc glucose check. Of note, he told RN, 'I do not want any chemicals in my body'. Pt is only oriented to self.
RN relayed his deferment of care to both Hospitalist Dr. Castellano, and RN called his only contact on file (brother) to let him know as well.
[2024-10-01] MEDS: CRESTOR PO (09:45)
[2024-10-01] MEDS: GLUCOPHAGE PO ×2 (09:45→17:55)
[2024-10-01] MEDS: NOVOLOG FLEXPEN-LOW RESISTANCE SC ×3 (09:45→17:54)
[2024-10-01] MEDS: ELIQUIS PO ×2 (09:45→21:47)
[2024-10-01] MEDS: NICODERM TRANSDERMAL TRANSDERM (09:46)
[2024-10-01] MEDS: NSS (PRESERVATIVE FREE) IV (09:46)
[2024-10-01] MEDS: ZYPREXA PO (09:46)
[2024-10-01] MEDS: KEPPRA IV ×2 (09:46→21:48)
[2024-10-01] MEDS: LASIX PO (09:46)
[2024-10-01] MEDS: PROTONIX IV IV (09:47)
[2024-10-01 11:45] VITALS: BP 122/81
--- NOTE | 2024-10-01 13:13 | CM ---
Patient's brother, Donavon, called employment case manager; reported that family prefers a SNF within [facility] zip code
Plan: discharge to SNF with Hospice pending bed availability
[2024-10-01] MEDS: ZYPREXA ZYDIS (ORALLY DISINTEGRATING) PO (13:23)
--- NOTE | 2024-10-01 13:24 | PTCARENOTE ---
Patient continues to refuse mediations and poc glucose check, but did let staff take afternoon vital signs. Pt is resting in bed with eyes closed. Family was visiting earlier and was updated by hospitalist over the phone. Family told RN that they
wish to proceed with hospice for their brother.
[2024-10-01 15:11] VITALS: BP 127/70
--- NOTE | 2024-10-01 15:25 | PTCARENOTE ---
Emir text to hospitalist about 2x SVT episodes on telemetry.
[2024-10-01 15:45] VITALS: BP 117/73
--- NOTE | 2024-10-01 15:52 | CM ---
Addendum entered by Vivien Pineda 10/01/24 16:24:
Plan; return to [facility] tomorrow via ambulance
Addendum entered by Vivien Pineda 10/01/24 15:57:
Patient's primary contact/brother phone # [phone] is the one who makes the decisions; patient's brother, Donavon, phone # [phone] called Fisheries Officer to help with communication.
Just received a call from Liz @ [facility] # [phone]; fax # [phone]; she reported that Hospice can be supported at the facility; patient can return to [facility] when stable and they can accept him back over the weekend.
Plan: Return to [facility] when medically stable
Original Note:
CM spoke with brothers via phone; explained that Bed ON HOLD @ [facility]; they were transitioning patient to LTC; many SNF referrals sent to facilities in [place]; financial application would be needed; Medicaid not transferrable to [facility].
Brothers agreeable for patient to return to [facility] LT; and if they find a facility in [place] closer to [place] ([place]), they can work with [facility] to transfer patient.
--- NOTE | 2024-10-01 17:55 | PTCARENOTE ---
Patient did have several episodes of what looked like SVT on telemetry, EKG showed NSR in 70's. Blood pressure was stable after episodes. Dr. Castellano came to bedside to assess. BID beta jud po ordered now.
Patient continues to refuse poc glucose checks and medication administration for afternoon/evening. Patient is agreeable to RN/PCT cleaning him up after urination episode in bed. RN/PCT performed bed bath with bath wipes, wan care, q2 turns. See
MAR/flow sheets/chart for further care details.
[2024-10-01] MEDS: DESYREL PO (21:48)
[2024-10-01] MEDS: DULCOLAX PO (21:48)
[2024-10-02] MEDS: DECADRON IV ×3 (00:54→13:18)
[2024-10-02 06:45] VITALS: BMI 25.9
--- NOTE | 2024-10-02 09:47 | W.PN.HOSP.TC ---
Today's Communication/Plan
-
dc to facility on hospice
Assessment / Plan
Assessment / Plan
IMPRESSION/PLAN:
CTA head and neck-acute pulmonary artery embolism in the right lung. Mild atherosclerotic plaque in both carotid bifurcations. Mild hypoplasia of the left vertebral artery. 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
complexes causing mild spinal cord compression and central canal stenosis.
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 Severe vasogenic edema throughout the right parietal, posterior frontal, occipital lobes
located deep into the right parietal craniotomy. Severe mass effect with sulci effacement and effacement of the body of the right lateral ventricle suggesting intraparenchymal brain tumor or radiation necrosis. Severe white matter disease
throughout left parietal, occipital, posterior frontal lobes. 5 mm right to left midline shift.
Head CT-severe vasogenic edema throughout the right parietal lobe, right occipital lobe and posterior right frontal lobe with associated sulcal effacement and effacement of the body and occipital horn of the right lateral ventricle. Considering that
this is located deep to the site of a right parietal craniotomy, this may be secondary to a recurrent intraparenchymal brain tumor (either metastatic disease or primary brain malignancy). Other causes of severe vasogenic edema are also possible.
Severe white matter disease in the left parietal and occipital lobes with mild mass effect which is much less pronounced than on the right.5.6 mm right to left midline shift.No CT evidence for acute intracranial hemorrhage or transcortical ischemic
infarct.
Ultrasound-nonocclusive thrombus involving left popliteal and posterior tibial veins
EKG-normal sinus rhythm
Spoke to brother . Diagnosed a year ago. He got Surgery [facility] followed by chemo and Radiation. His insurance changed and then he had to shift treatments to [facility]. He does not exactly know when last treatment was ,may be 2 months
ago. He sees him every other day at the intermediate. Patient does not ambulate and the last time he ambulated was possibly 2 months ago .
Assessment:
Seizures
- Likely secondary to glioblastoma
- Got 3 g of Keppra IV and Ativan in the ER also Decadron
- Neurology evaluation appreciated
- Continue Keppra 1000 mg BID.
- Dr. Olson discussed with Dr. Cunningham decrease Decadron to 4 mg p.o. every 6 hours at discharge.
Glioblastoma
- Left-sided weakness from above
- Patient has been seen by neurosurgery through [facility] during an admission in August.No neurosurgical intervention planned
- Patient has been managed by medical oncology including Keppra and Decadron
- Patient has been having some intermittent aggressive behavior as outpatient and was started on Zyprexa
- Medical oncologist Dr. Arredondo has also recommended hospice
- Patient was seen by oncology - hospice recommended
- family in agreement for hospice in a SNF setting
Mental health disorder/behavior management-continue Xanax 0.5 mg p.o. twice daily as needed, olanzapine 2.5 mg daily and 5 mg at 1300, trazodone 50 mg at bedtime
PE/DVT
- US: nonocclusive thrombus involving left popliteal and posterior tibial veins
- continue Eliquis; can dc if patient going on hospice
Hyperlipidemia
- statin
Diabetes
- hemoglobin A1c 8.3
- Accu-Cheks and sliding scale coverage
- Increase metformin since steroid dose is going to be increased
- Watch sugars with increased steroids
Ex Smoker
DVT ppx: Eliquis
Code: DNR/DNI
Dispo: Hospice at SNF - dc today
More than 30 minutes spent in discharge including
Final examination of the patient
Summarizing hospital stay
Instructions for continuing care to all relevant caregivers
Preparation of discharge records, prescriptions, and referral forms
Total time spent (in minutes): 42
Anticipated Discharge: Today
Subjective/Interval History
-
Date of Service: October 02, 2024
no overnight events
periods of tachycardia - refusing beta jud
Objective Data
-
Vital Signs:
Vital Signs
Temp Pulse Resp BP Pulse Ox
97.9 F 68 14 117/73 100
10/01/24 15:45 10/01/24 15:45 10/01/24 15:45 10/01/24 15:45 10/01/24 15:45
I&O
10/01/24 10/02/24 10/03/24
06:59 06:59 06:59
Intake Total 840 / 840 580 / 580
Balance 840 / 840 580 / 580
Physical Exam
-
General: No Apparent Distress
HEENT: Normocephalic
Respiratory: Negative Wheezes
Cardiac: Regular Rhythm, S1/S2 and Tachycardic
Genito-urinary: No Costovertebral Tender
Neuro: AO x 3 and Other (left sided hemiplegia, tremors)
Psych: Calm
Data Reviewed
-
Total Time Spent with Patient (in minutes): 42
Labs: Labs Reviewed by me
--- NOTE | 2024-10-02 09:55 | W.DS.TRANS ---
DC Summary - Instructional Design Consultant
-
Discharge Instructions:
Discharge Diagnosis/Procedures Seizures
Cerebral edema from glioblastoma
DVT and PE
Mental health disorder
Hyperlipidemia
Diabetes
Ex-smoker
Diet As tolerated,Regular
Activity As tolerated,With assistance
Driving Restrictions No driving
Other Services Hospice
Instructions:
Stand-Alone Forms:
Changes to Home Medications: No
Discharge Medications:
DC Medications w/original date entered in [employer]
acetaminophen 325 mg tablet (Tylenol) 650 mg PO Q6HPRN PRN mild pain 09/28/24
apixaban 5 mg tablet (Eliquis) 5 mg PO BID Blood Clot Prevention/Tx 09/28/24
bisacodyl 10 mg rectal suppository (Dulcolax (bisacodyl)) 10 mg TX DAILYPRN PRN if no bm aftr mom 09/28/24
bisacodyl 5 mg tablet,delayed release (Dulcolax (bisacodyl)) 10 mg PO HS Constipation 09/28/24
calcium carbonate (Tums) 300 mg PO BID Gastrointestinal Issue 09/28/24
ergocalciferol (vitamin D2) 1,250 mcg (50,000 unit) capsule 1,250 mcg PO Q7D Supplement 09/28/24
furosemide 40 mg tablet (Lasix) 40 mg PO DAILY Blood Pressure 09/28/24
magnesium hydroxide 400 mg/5 mL oral suspension (Milk of Magnesia) 2,400 mg PO [id number] PRN constipation 09/28/24
melatonin 3 mg tablet 3 mg PO HS Sleep 09/28/24
nicotine 21 mg/24 hr daily transdermal patch 1 patch transdermal DAILY NICOTINE REPLACEMENT 09/28/24
olanzapine 2.5 mg tablet 2.5 mg PO DAILY Mental Health/Anxiety 09/28/24
olanzapine 5 mg disintegrating tablet 5 mg PO DAILY@1300 Mental Health/Anxiety 09/28/24
rosuvastatin 10 mg tablet (Crestor) 10 mg PO DAILY High Cholesterol 09/28/24
sodium phosphates 19 gram-7 gram/118 mL enema (Fleet Enema) 118 ml TX DAILYPRN PRN if no bm aftr dulcolax 09/28/24
trazodone 50 mg tablet 50 mg PO HS Sleep 09/28/24
dexamethasone 2 mg tablet 4 mg (2 x 2 mg) PO Q6H Anti-Inflammatory #0 tabs 09/30/24
docusate sodium 50 mg capsule 100 mg (2 x 50 mg) PO HS Constipation #0 caps 09/30/24
levetiracetam 500 mg tablet (Keppra) 1,000 mg (2 x 500 mg) PO BID Neurological Condition #0 tabs 09/30/24
metformin 1,000 mg tablet 1,000 mg PO BID Diabetes #60 tabs 09/30/24
omeprazole 20 mg tablet,delayed release 40 mg (2 x 20 mg) PO DAILY Gastrointestinal Issue #0 tabs 09/30/24
metoprolol tartrate 25 mg tablet 25 mg PO BID #60 tabs 10/01/24
Home Medication Changes
Pending Results: No
Total time spent discharging patient (in min): 42
--- NOTE | 2024-10-02 10:11 | CM ---
Patient to return to [facility] today
transportation forms on chart
OOH DNR signed on the chart
spoke with Liz at [facility], she reported that Hospice can be supported at the facility
PLAN: [facility]
Report #: [phone] ask for 3rd floor nsg station
Fax #: [phone]
transportation forms on chart
[2024-10-02] MEDS: NOVOLOG FLEXPEN-LOW RESISTANCE SC ×2 (10:44→13:18)
[2024-10-02] MEDS: CRESTOR PO (10:44)
[2024-10-02] MEDS: ELIQUIS PO (10:44)
[2024-10-02] MEDS: GLUCOPHAGE PO (10:45)
[2024-10-02] MEDS: NICODERM TRANSDERMAL TRANSDERM (10:45)
[2024-10-02] MEDS: LASIX PO (10:45)
[2024-10-02] MEDS: KEPPRA IV (10:45)
[2024-10-02] MEDS: ZYPREXA PO (10:45)
[2024-10-02 11:00] VITALS: BP 140/96
[2024-10-02 12:20] LABS: Glucose - Point of Care 143 mg/dl (70-99)
[2024-10-02] MEDS: ZYPREXA ZYDIS (ORALLY DISINTEGRATING) PO (13:18)
[2024-10-02] MEDS: TYLENOL/FEVERALL 650 MG RECTAL (15:20)
--- NOTE | 2024-10-02 15:23 | PTCARENOTE ---
Pt tempt 101.4. made aware, still ok for discharge. NH updated. Rectal tylenol given.
== END 2024-10-02 16:05 | DRG 54 ==
LOC: 3 WEST ACU 13:21
PROVIDERS: Emergency Medicine; ADMITTING PHYSICIAN Hospitalist; ATTENDING PHYSICIAN Internal Medicine; CONSULT PHYSICIAN Internal Medicine Hematology & Oncology; CONSULT PHYSICIAN Psychiatry & Neurology Neurology; EMERGENCY PHYSICIAN Emergency Medicine; FAMILY PHYSICIAN Internal Medicine
DX: C71.9 Malignant neoplasm of brain, unspecified (principal); G93.6 Cerebral edema; I26.99 Other pulmonary embolism without acute cor pulmonale; I47.20 Ventricular tachycardia, unspecified; R47.01 Aphasia; G95.20 Unspecified cord compression; I82.432 Acute embolism and thrombosis of left popliteal vein; I82.442 Acute embolism and thrombosis of left tibial vein; E78.00 Pure hypercholesterolemia, unspecified; E11.9 Type 2 diabetes mellitus without complications; Z87.891 Personal history of nicotine dependence; Z86.711 Personal history of pulmonary embolism; Z86.718 Personal history of other venous thrombosis and embolism; F41.9 Anxiety disorder, unspecified; Z79.01 Long term (current) use of anticoagulants; R29.810 Facial weakness; M25.78 Osteophyte, vertebrae; M47.812 Spondylosis without myelopathy or radiculopathy, cervical region; Z79.899 Other long term (current) drug therapy; G83.84 Todd's paralysis (postepileptic); I10 Essential (primary) hypertension; K59.00 Constipation, unspecified; R62.7 Adult failure to thrive; Z79.84 Long term (current) use of oral hypoglycemic drugs; Z92.21 Personal history of antineoplastic chemotherapy; Z92.3 Personal history of irradiation; Z99.3 Dependence on wheelchair
CPT/HCPCS: 70450; 70496; 70498; 80048; 80053; 80061; 81003; 81015; 82607; 82728; 82746; 82962; 83036; 83735; 84439; 84443; 85025; 85027; 87070; 87147; 92526; 92610; 93005; 93971; 95813; 96374; 96375; 99291; Q9967